=== PATIENT | male | born 1940 | race Caucasian/White ===

== ENCOUNTER → 2023-10-19 08:13 | Outpatient (REF) | payer MEDICARE, SELFPAY ==
[2023-10-19 10:26] LABS: ALT (SGPT) 24 U/L (0-50); AST (SGOT) 35 U/L (17-59); Alkaline Phosphatase 72 U/L (38-126); Blood Urea Nitrogen 26 mg/dl (9-20); Calcium 8.7 mg/dl (8.4-10.2); Carbon Dioxide 27 mmol/L (22-30); Chloride 108 mmol/L (98-107); Glucose 84 mg/dl (70-99); HDL Cholesterol 59 mg/dl; LDL Cholesterol, Calculated 61 mg/dl; Potassium 4.3 mmol/L (3.5-5.1); Sodium 139 mmol/L (135-145); Total Bilirubin 0.8 mg/dl (0.2-1.3); Total Cholesterol 131 mg/dl (50-199); Total Protein 6.6 g/dl (6.3-8.2); Triglyceride 55 mg/dl (10-149); Very Low Density Lipoprotein 11 mg/dl (0-30); eGFR 59.26
== END ==
LOC: REG 08:13
PROVIDERS: ATTENDING PHYSICIAN Internal Medicine; FAMILY PHYSICIAN Family Medicine
DX: I25.10 Atherosclerotic heart disease of native coronary artery without angina pectoris (principal); I10 Essential (primary) hypertension; E78.5 Hyperlipidemia, unspecified
CPT/HCPCS: 36415; 80053; 80061

== ENCOUNTER → 2023-10-23 12:53 | Outpatient (REF) | payer MEDICARE, SELFPAY | LOC: DHCBC HW 12:53 | PROVIDERS: ATTENDING PHYSICIAN Internal Medicine; FAMILY PHYSICIAN Family Medicine | DX: I25.10 Atherosclerotic heart disease of native coronary artery without angina pectoris (principal); I35.1 Nonrheumatic aortic (valve) insufficiency; R42 Dizziness and giddiness | CPT/HCPCS: 93306 ==

== ENCOUNTER → 2023-12-03 14:13 | Outpatient (REF) | payer MEDICARE, SELFPAY | LOC: RAD 14:13 | PROVIDERS: ATTENDING PHYSICIAN Internal Medicine; FAMILY PHYSICIAN Family Medicine | DX: I25.10 Atherosclerotic heart disease of native coronary artery without angina pectoris (principal); R42 Dizziness and giddiness | CPT/HCPCS: 93880 ==

== ENCOUNTER 2024-05-19 20:47 | Inpatient (IN) | payer MEDICARE, SELFPAY ==
[2024-05-19 17:35] VITALS: BP 139/72
--- NOTE | 2024-05-19 17:36 | ED.GENMED ---
ED Provider Triage
<Bhargavi Causey PA-C - Last Filed: 05/21/24 15:00>
-
Patient seen by provider in Triage?: Seen in Triage
Attestation: A medical screening examination has been initiated by a qualified medical provider. Based on the assessment performed at this time, it has been determined that an emergent medical condition may exist and the patient has been informed
that further medical evaluation and possible additional diagnostic testing may be needed.
HPI: 83yoM here with fatigue and generalized weakness x 1 week. HR reportedly low in the 30-40s at home and home BP 90s/50s. Vital signs normal in triage.
GENERAL: Alert , in no apparent distress
EYE: No visual abnormalities.
NECK: Trachea midline
ENT: No visible abnormalities.
LUNGS: No acute respiratory distress
NEUROLOGICAL: Alert and oriented
SKIN: Skin intact. No visible changes.
MUSCULOSKELETAL: Moving extremities normally
PSYCH: Normal and appropriate interaction.
This is a medical evaluation conducted in person to initiate diagnostic evaluation and provide initial therapeutics. Please see further documentation by the treating clinician.
CBC, CMP, and EKG ordered.
History of Present Illness
<Bhargavi Causey PA-C - Last Filed: 05/21/24 15:00>
General
Chief Complaint: Fatigue
Time Seen by Provider: 05/19/24 18:39
<Ángela Ferrera NP - Last Filed: 05/20/24 22:08>
General
Source: patient
Exam Limitations: none
Nursing documentation reviewed up to this point in time: agreed with
History of Present Illness
History of Present Illness:
Patient to ED with complaint of extreme fatigue for the past week. States yesterday he checked his BP and noticed that it was low. He contacted his PCP today to report his fatigue symptoms and was advised to come to ED for eval. Denies
fever/chills, n/v/d. No cp/pressure. Reports mild MURO with stairclimbing, lightheadedness with stair climbing. To ED accompanied by for eval.
Past History
<Bhargavi Causey PA-C - Last Filed: 05/21/24 15:00>
Past History
ED Past Medical History: CAD, Hypercholesterolemia and Other (Kidney stones)
ED Past Surgical History: Cardiac (CABG)
Social History
Tobacco: Non-smoker
Alcohol: None
Drug: None
Personal:
Living: with family
Review of Systems
<Ángela Ferrera OFFICE ADMINISTRATIVE ASSISTANT - Last Filed: 05/20/24 22:08>
Review of Systems
Allergies reviewed?: Yes
All Other Systems: ROS reviewed and negative except as documented in HPI and ROS
Constitutional: Reports fatigue
EENT: Reports no symptoms
Respiratory: Reports no symptoms
Cardiac: Reports no symptoms
ABD/GI: Reports no symptoms
: Reports no symptoms
Musculoskeletal: Reports no symptoms
Skin: Reports no symptoms
Neurological: Reports weakness
Psychiatric: Reports no symptoms
Phy Exam
<Ángela Ferrera OFFICE ADMINISTRATIVE ASSISTANT - Last Filed: 05/20/24 22:08>
General Physical Exam
General Presentation: mild distress
General age: appears stated age
General Skin: warm and dry
General Habitus: normal
General Mental: alert
General Hydration: appears well hydrated
Cardiovascular Exam
Cardiovascular Exam: no edema and irregularly irregular
Pulmonary Exam
Pulmonary Exam: lungs clear and no respiratory distress
Gastrointestinal Exam
Gastrointestinal Exam: normal bowel sounds, non tender and soft
Musculoskeletal Exam
Musculoskeletal Exam: full ROM and neuro vasc intact
Skin Exam
Skin Exam: normal color, warm/dry and no rash
Psychiatric Exam
Psychiatric Exam: normal mood/affect
Scores
<Bhargavi Causey PA-C - Last Filed: 05/21/24 15:00>
[id number] Score for Afib Stroke Risk
Score: 3
Anticoagulation Recommendations: Recommend anticoagulation (as validated in nonvalvular fib)
<Ángela Ferrera NP - Last Filed: 05/20/24 22:08>
[id number] Score for Afib Stroke Risk
Age in Years (65=0, 65-74=1, >/=75=2): > or = 75
Sex (Female=+1): Male
Congestive Heart Failure History (Yes=+1): No
Hypertension History (Yes=+1): No
Stroke/TIA/Thromboembolism History (Yes=+2): No
Vascular Disease History (Yes=+1): Yes
Diabetes Mellitus (Yes=+1): No
Score: 3
Anticoagulation Recommendations: Recommend anticoagulation (as validated in nonvalvular fib)
Course
<Bhargavi Causey PA-C - Last Filed: 05/21/24 15:00>
Orders/Labs/Results
Orders:
Orders
05/19/24 Breakfast
Cholesterol Lowering
At Your Request: Limited Participation
Does patient need a safe tray?: No
Cholesterol Lowering: Sodium, 2 Gram
05/19/24 17:34
ECG [Electrocardiogram (*1)] Urgent
Reason for Study: Fatigue / Weakness
EKG- Treatment ONCE
05/19/24 17:38
EKG- Treatment ONCE
05/19/24 17:52
Complete Blood Count/With Diff Urgent
Comprehensive Metabolic Panel Urgent
TSH Reflex To Free T4 Urgent
Comment: ADDON
05/19/24 19:04
Add On- LAB Urgent
Tests Added?: TSH, reflex to free T4
05/19/24 19:05
Apixaban [Eliquis] 5 mg PO NOW STA
05/19/24 19:13
Troponin I Urgent
05/19/24 20:09
Admit/Transfer Patient As Directed
Co-Sign Provider:
Level of Care: Inpatient admission
Assign to:: Telemetry
Physician / Group: htay
Diagnosis: New onset slow AF , Hypotenssion and fatigue
Reason for Telemetry: Arrhythmia
Date to Stop Telemetry: 05/22/24
Time to Stop Telemetry: 11:00
Reason for Hospitalization: New onset slow AF , Hypotenssion and fatigue
Expected length of stay greater than two midnights?: Yes
ELOS- Estimated Length of Stay in days: 3
I certify the patient meets the requirements for IP care: Yes
05/19/24 20:11
Code Status As Directed
Resuscitation Status: Full Code
05/19/24 22:06
0.9% Sodium Chloride 1000 ml [Nss] 1,000 ml IV 40 mls/hr
Acetaminophen [Tylenol] 650 mg PO Q4HPRN PRN
Bisacodyl [Dulcolax] 10 mg RECTAL [id number] PRN
Docusate W/Senna [Senokot-S] 1 tablet PO BIDPRN PRN
Nitroglycerin Sublingual [Nitrostat (Sublingual)] 0.4 mg SL [id number] PRN
Polyethylene Glycol Powder [Miralax] 17 grams PO DAILYPRN PRN
05/19/24 22:06
Activity As Directed
Activity Level: Encourage Progressive Amb
Intake/ Output As Directed
Frequency: Per unit guidelines
Vital Signs As Directed
Frequency: Per unit guidelines
Weight As Directed
Frequency: Daily
DX Deep Vein Thrombosis Video Routine
05/20/24 08:00
Apixaban [Eliquis] 5 mg PO BID
Aspirin Low Dose EC [Aspir Low (Enteric Coated)] 81 mg PO DAILY
05/20/24 08:01
Basic Metabolic Panel IN AM
Complete Blood Count/With Diff IN AM
05/20/24 22:00
Atorvastatin [Lipitor] 20 mg PO HS
05/22/24 11:00
DC Protocol for Telemetry ONCE
Abnormal Lab Results
05/19/24
17:52
RBC 4.17 L 10^6/uL
(4.70-6.10)
Hct 38.2 L %
(39.0-52.0)
MCH 31.2 H pg
(27.0-31.0)
Absolute Monos (auto) 0.7 H 10^3/uL
(0.1-0.6)
Monocytes % 10.1 H %
(1.7-9.3)
BUN 27 H mg/dl
(9-20)
05/19/24 17:52
05/19/24 17:52
Vital Signs
Initial and Last Documented VS:
Initial Vital Signs
Temp Pulse Resp BP Pulse Ox
98.8 F 68 18 139/72 100
05/19/24 17:35 05/19/24 17:35 05/19/24 17:35 05/19/24 17:35 05/19/24 17:35
Last Documented Vital Signs
Temp Pulse Resp BP Pulse Ox
98.8 F 60 18 131/64 94
05/21/24 11:00 05/21/24 11:00 05/21/24 11:00 05/21/24 11:00 05/21/24 11:00
<Ángela Ferrera NP - Last Filed: 05/20/24 22:08>
Orders/Labs/Results
Orders:
Orders
05/19/24 Breakfast
Cholesterol Lowering
At Your Request: Limited Participation
Does patient need a safe tray?: No
Cholesterol Lowering: Sodium, 2 Gram
05/19/24 17:34
ECG [Electrocardiogram (*1)] Urgent
Reason for Study: Fatigue / Weakness
EKG- Treatment ONCE
05/19/24 17:38
EKG- Treatment ONCE
05/19/24 17:52
Complete Blood Count/With Diff Urgent
Comprehensive Metabolic Panel Urgent
TSH Reflex To Free T4 Urgent
Comment: ADDON
05/19/24 19:04
Add On- LAB Urgent
Tests Added?: TSH, reflex to free T4
05/19/24 19:05
Apixaban [Eliquis] 5 mg PO NOW STA
05/19/24 19:13
Troponin I Urgent
05/19/24 20:09
Admit/Transfer Patient As Directed
Co-Sign Provider:
Level of Care: Inpatient admission
Assign to:: Telemetry
Physician / Group: htay
Diagnosis: New onset slow AF , Hypotenssion and fatigue
Reason for Telemetry: Arrhythmia
Date to Stop Telemetry: 05/22/24
Time to Stop Telemetry: 11:00
Reason for Hospitalization: New onset slow AF , Hypotenssion and fatigue
Expected length of stay greater than two midnights?: Yes
ELOS- Estimated Length of Stay in days: 3
I certify the patient meets the requirements for IP care: Yes
05/19/24 20:11
Code Status As Directed
Resuscitation Status: Full Code
05/19/24 22:06
0.9% Sodium Chloride 1000 ml [Nss] 1,000 ml IV 40 mls/hr
Acetaminophen [Tylenol] 650 mg PO Q4HPRN PRN
Bisacodyl [Dulcolax] 10 mg RECTAL [id number] PRN
Docusate W/Senna [Senokot-S] 1 tablet PO BIDPRN PRN
Nitroglycerin Sublingual [Nitrostat (Sublingual)] 0.4 mg SL [id number] PRN
Polyethylene Glycol Powder [Miralax] 17 grams PO DAILYPRN PRN
05/19/24 22:06
Activity As Directed
Activity Level: Encourage Progressive Amb
Intake/ Output As Directed
Frequency: Per unit guidelines
Vital Signs As Directed
Frequency: Per unit guidelines
Weight As Directed
Frequency: Daily
DX Deep Vein Thrombosis Video Routine
05/20/24 08:00
Apixaban [Eliquis] 5 mg PO BID
Aspirin Low Dose EC [Aspir Low (Enteric Coated)] 81 mg PO DAILY
05/20/24 08:01
Basic Metabolic Panel IN AM
Complete Blood Count/With Diff IN AM
05/20/24 22:00
Atorvastatin [Lipitor] 20 mg PO HS
05/22/24 11:00
DC Protocol for Telemetry ONCE
Abnormal Lab Results
05/19/24
17:52
RBC 4.17 L 10^6/uL
(4.70-6.10)
Hct 38.2 L %
(39.0-52.0)
MCH 31.2 H pg
(27.0-31.0)
Absolute Monos (auto) 0.7 H 10^3/uL
(0.1-0.6)
Monocytes % 10.1 H %
(1.7-9.3)
BUN 27 H mg/dl
(9-20)
05/19/24 17:52
05/19/24 17:52
Vital Signs
Initial and Last Documented VS:
Initial Vital Signs
Temp Pulse Resp BP Pulse Ox
98.8 F 68 18 139/72 100
05/19/24 17:35 05/19/24 17:35 05/19/24 17:35 05/19/24 17:35 05/19/24 17:35
Last Documented Vital Signs
Temp Pulse Resp BP Pulse Ox
98.8 F 60 18 131/64 94
05/21/24 11:00 05/21/24 11:00 05/21/24 11:00 05/21/24 11:00 05/21/24 11:00
<Ángela Ferrera NP - Last Filed: 05/20/24 22:08>
MDM/Problems Addressed
Differential Diagnosis Includes:
Patient to ED with complaint of extreme fatigue x 1 week. EKG on arrival reveals Afib - no prior history. HR fluctuating from high 30's to low 60's. He denies any CP/pressure. No distress while at rest. Case discussed with Dr. Washington. Will
start Eliquis in ED, admit to hospitalist for new onset Afib, hold atenolol. Patient is agreeable to plan.
<Ángela Ferrera NP - Last Filed: 05/20/24 22:08>
*Critical Care Note
Total Time (30-74mins, 75-104mins- exclusive of procedures): Not Applicable
ED Attending Note
<Bhargavi Causey PA-C - Last Filed: 05/21/24 15:00>
-
Portions of this chart may have been created with voice recognition software.� Occasional wrong word or��sound alike� substitutions may have occurred due to the inherent limitations of voice recognition software.
Discharge Plan
Departure
Patient Disposition: Admit
Date of Disposition: 05/19/24
Time of Disposition: 19:21
Presentation/result/management discussed w/ accepting MD/DO: Hospitalist
Condition: Fair
Covid-19: Not Applicable
Discharge Problem:
New onset a-fib
Interventions
Interventions:
*Risk Screen - Suicide Last Done: 05/19/24 17:35
*General Assessment Last Done: 05/19/24 17:35
*Neglect/Abuse Screening Last Done: 05/19/24 17:35
ED- Fall Risk Assessment Last Done: 05/19/24 18:21
*ED COVID-19 Vaccine History Last Done: 05/19/24 17:35
*Nursing Disposition Last Done: 05/19/24 22:16
Discharge Date and Time
Discharge Date/Time: 05/19/24 22:00
[2024-05-19 18:00] LABS: % Basophils 0.6 % (0-2); % Eosinophils 1.3 % (0-6); % Immature Granulocytes 0.1 % (0-0.5); % Lymphocytes 23.4 % (20.5-51.1); % Monocytes 10.1 % (1.7-9.3); % Neutrophils 64.5 % (42.2-75.2); Absolute Eosinophils 0.1 10^3/uL (0-0.7); Absolute Lymphocytes 1.6 10^3/uL (1.2-3.4); Absolute Monocytes 0.7 10^3/uL (0.1-0.6); Absolute Neutrophils 4.3 10^3/uL (1.4-6.5); Hematocrit 38.2 % (39.0-52.0); Mean Corpuscular Hgb 31.2 pg (27.0-31.0); Mean Corpuscular Volume 91.6 fL (80.0-94.0); Mean Platelet Volume 9.9 fL (7.4-10.4); Nucleated Red Blood Cells % 0 % (-); Platelet Count 209 10^3/uL (130-400); Red Blood Cell Count 4.17 10^6/uL (4.70-6.10); Red Cell Dist. Width 13.1 % (11.5-14.5); White Blood Cell Count 6.7 10^3/uL (4.8-10.8)
[2024-05-19 18:16] LABS: ALT (SGPT) 35 U/L (0-50); AST (SGOT) 48 U/L (17-59); Albumin 4.3 g/dl (3.5-5.0); Alkaline Phosphatase 71 U/L (38-126); Blood Urea Nitrogen 27 mg/dl (9-20); Carbon Dioxide 26 mmol/L (22-30); Chloride 105 mmol/L (98-107); Glucose 91 mg/dl (70-99); Potassium 4.8 mmol/L (3.5-5.1); Sodium 143 mmol/L (135-145); Total Bilirubin 0.8 mg/dl (0.2-1.3); Total Protein 6.8 g/dl (6.3-8.2); eGFR 59.26
[2024-05-19 18:17] VITALS: BP 142/82
[2024-05-19 18:20] VITALS: BMI 24.2
[2024-05-19] MEDS: ELIQUIS 5 MG PO (19:13)
[2024-05-19 19:56] LABS: Troponin I 0.019 ng/ml
--- NOTE | 2024-05-19 20:04 | HPS.HSE ---
Family Physician
-
Family Physician: Anil Chandler Jr.
Chief Complaint
-
slow HR and low BP
History of Present Illness
83M pw fatigue for a week and noted CAMPBELL as low as 90s/40s and low HR. as low 30-40
Reports HR 30-40 at home. BP 9/50s
Medical History
Past Medical History
Past Medical History: Reports CAD (CABG ), HTN, Hypercholesterolemia and Other (BPH )
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
Social History
Tobacco: Non-smoker
Alcohol: Daily (1 glass of wine )
Family History
Family History: Not pertinent
Allergies / Home Medications
Allergies reflects when Allergies were last updated in [facility].
Home Medications with original date entered in [facility]
Allergy/Medication List:
Allergies
Allergy/AdvReac Type Severity Reaction Status Date / Time
amoxicillin Allergy Rash Verified 05/19/24 17:39
Home Medications
nitroglycerin 0.4 mg sublingual tablet 0.4 mg sublingual [id number] PRN chest pain 07/23/11
simvastatin 40 mg tablet 40 mg PO HS High cholesterol 07/23/11
aspirin 81 mg tablet,delayed release 81 mg PO DAILY Blood clot prevention/tx 01/12/22
atenolol 25 mg tablet 12.5 mg PO DAILY Blood pressure 01/12/22
cyanocobalamin (vitamin B-12) 1,000 mcg tablet 1,000 mcg PO DAILY Supplement 01/12/22
famotidine 20 mg tablet 20 mg PO DAILYPRN PRN heartburn 01/12/22
Lactobacillus acidophilus (Acidophilus capsule) 1 cap PO DAILY 05/19/24
Review of Systems
-
Constitutional: Reports See HPI and Fatigue
EENT: Reports No Symptoms
Respiratory: Reports No Symptoms
Cardiac: Reports No Symptoms and Other (slow HR low BP )
Abdomen/GI: Reports No Symptoms
: Reports No Symptoms
Musculoskeletal: Reports No Symptoms
Skin: Reports No Symptoms
Neurological: Reports No Symptoms
Endocrine: Reports No Symptoms
Hematologic/Lymphatic: Reports No Symptoms
Psych: Reports No Symptoms
Physical Exam
Vital Signs
Vital Signs
Temp Pulse Resp BP Pulse Ox
98.8 F 68 18 142/82 100
05/19/24 17:35 05/19/24 17:35 05/19/24 17:35 05/19/24 18:17 05/19/24 17:35
Physical Exam
General: Well Developed, Well Nourished and No Apparent Distress
HEENT: NormoCephalic, Moist mucous membranes and Atraumatic
Respiratory: Clear
Cardiac: S1/S2 and Regular Rhythm; No Murmur or Rub
GI: Soft, Non Tender, Non Distended and Normal Bowel Sounds; No Organomegaly
Rectal: Deferred by Provider
Musculoskeletal: No Clubbing, No Cyanosis and No Edema
Skin: No Rash
Neuro: Nonfocal/grossly intact
Laboratory Results
-
05/19/24 17:52
05/19/24 17:52
Laboratory Results
Total Bilirubin 0.8 mg/dl (0.2-1.3) 05/19/24 17:52
AST 48 U/L (17-59) 05/19/24 17:52
ALT 35 U/L (0-50) 05/19/24 17:52
Alkaline Phosphatase 71 U/L (38-126) 05/19/24 17:52
Troponin I 0.019 ng/ml 05/19/24 19:13
Data Reviewed
-
Medical Tests (Nuc Med, Echo, EKG etc): Report Reviewed by me
Lab Data: Labs Reviewed by me
Impression/Plan
-
Data
Unremarkable CBC
Unremarkable CMP
TPNI 0.019
EKG : A Flutter with variable block
10/23/23 ECHO
Normal left ventricular size, wall thickness and systolic function.
LV ejection fraction is 55-60%.
Moderate mitral regurgitation.
Mild aortic stenosis.
Mild aortic regurgitation.
ASSESSMENT & PLAN
New onset A Flutter with viable block presumed symptomatic with lightheadedness with 2-3 flights of stairs
Fatigue for 1week
P card: Dr Link
- Held Atenolol
- ER imitated Eliquis 5 mg BID
- LVEF 55- 60 % in 10/23/23
- TLM monitor
- Fall precaution
- CBC Card consult
CAD status post CABG HX
- c/w SODA FLAKER ASA
- Held atenolol due to slow HR
- SL NTG PRN
Hyperlipidemia
- on SODA FLAKER Simvastatin
Right hydroureteronephrosis secondary to obstructed renal stone
Daily alcohol usage just a glass of wine
DVT Px: on Eliquis
Code: full
IP TLM
[2024-05-19 20:19] LABS: TSH Reflex To Free T4 1.72 uIU/ml (0.47-4.68)
[2024-05-19 22:18] VITALS: BMI 22.4
[2024-05-19 22:21] VITALS: BP 147/71
[2024-05-19] MEDS: NSS 1000 IV (23:20)
[2024-05-20] VITALS (7 sets, daily range): BP systolic 94–144; BP diastolic 56–66; BMI 22.7
--- NOTE | 2024-05-20 00:53 | PTCARENOTE ---
Patient received from ED via stretcher and was pulled to bed by staff. He was oriented to room and surroundings. HR irreg A-fib on tele HR bradycardic. Breath sounds are clear but diminished bibasilar. +BS x 4 Voiding in urinal. Patient
denies pain. IVF as ordered.Call peacock in reach.
--- NOTE | 2024-05-20 04:03 | DOWNTIME ---
There was a [employer] Client Director Physical Downtime on 05/20/2024 from 0100 to 05/20/2024 at 0355. Downtime documentation of patient's care, including medication administrations, has been reconciled in the electronic record per guidelines. Refer to the
patient's paper chart under the miscellaneous tab to see printed paper medication records and downtime forms.
--- NOTE | 2024-05-20 04:24 | PTCARENOTE ---
Tele alarming for HR 30's-40's. A-fib/Aflutter Reviewed by CATHY, covering floor. Patient sleeping comfortably
[2024-05-20 08:44] LABS: % Basophils 0.7 % (0-2); % Eosinophils 2.6 % (0-6); % Immature Granulocytes 0.2 % (0-0.5); % Lymphocytes 23.5 % (20.5-51.1); % Monocytes 11.1 % (1.7-9.3); % Neutrophils 61.9 % (42.2-75.2); Absolute Eosinophils 0.2 10^3/uL (0-0.7); Absolute Lymphocytes 1.4 10^3/uL (1.2-3.4); Absolute Monocytes 0.7 10^3/uL (0.1-0.6); Absolute Neutrophils 3.8 10^3/uL (1.4-6.5); Hemoglobin 12.6 g/dL (13.0-18.0); Mean Corp Hgb Conc. 34.1 g/dL (33.0-37.0); Mean Corpuscular Hgb 32.6 pg (27.0-31.0); Mean Corpuscular Volume 95.6 fL (80.0-94.0); Mean Platelet Volume 10.5 fL (7.4-10.4); Nucleated Red Blood Cells % 0 % (-); Platelet Count 196 10^3/uL (130-400); Red Blood Cell Count 3.87 10^6/uL (4.70-6.10); Red Cell Dist. Width 13.1 % (11.5-14.5); White Blood Cell Count 6.1 10^3/uL (4.8-10.8)
[2024-05-20] MEDS: ASPIR LOW (ENTERIC COATED) 81 MG PO (09:02)
[2024-05-20] MEDS: ELIQUIS 5 MG PO ×2 (09:02→20:34)
[2024-05-20 09:50] LABS: Blood Urea Nitrogen 22 mg/dl (9-20); Calcium 8.6 mg/dl (8.4-10.2); Carbon Dioxide 26 mmol/L (22-30); Chloride 106 mmol/L (98-107); Estimated Creatinine Clearance 47 ml/min; Glucose 75 mg/dl (70-99); Potassium 4.3 mmol/L (3.5-5.1); Sodium 143 mmol/L (135-145); eGFR > 60.00
--- NOTE | 2024-05-20 09:52 | W.PN.HOSP.TC ---
Today's Communication/Plan
-
Cardiology consult
Assessment / Plan
Assessment / Plan
Gen-AAOx3, NAD
HEENT-NC, AT, anicteric, clear oral mm
Neck-supple
CV-reg, no M, +S1/S2
Lungs-clear B/L
Abd-soft, NT, ND
Ext-no edema
Musculoskeletal-no cyanosis, clubbing
Skin-warm and dry
Neuro-grossly non-focal
Psych-calm, cooperative
Symptomatic bradycardia -atenolol now on hold. Heart rate still in the 40s to 50s. TSH normal. Cardiology consulted. Suspicion for sick sinus disease. Also noted to be hypotensive prior to arrival.
New onset atrial flutter -with bradycardia. Eliquis initiated.
CAD/CABG
Hyperlipidemia -simvastatin.
BPH
Nephrolithiasis
Full code
Anticipated Discharge: 24 - 48 hours
Subjective/Interval History
-
Date of Service: May 20, 2024
Patient seen and examined. No complaints.
Objective Data
-
Labs:
Laboratory Results
05/20/24
08:01
WBC 6.1
Hgb 12.6 L
Hct 37.0 L
Plt Count 196
Sodium 143
Potassium 4.3
Chloride 106
Carbon Dioxide 26
BUN 22 H
Creatinine 1.0
Glucose 75
Calcium 8.6
Vital Signs:
Vital Signs
Temp Pulse Resp BP Pulse Ox
97.7 F 65 18 121/57 99
05/20/24 08:04 05/20/24 08:04 05/20/24 08:04 05/20/24 08:04 05/20/24 08:04
I&O
05/19/24 05/20/24 05/21/24
06:59 06:59 06:59
Intake Total 780 / 780
Output Total 525 / 525 300 / 300
Balance 255 / 255 -300 / -300
Review of Systems
-
History Source: Patient
All other systems: Reviewed and negative
--- NOTE | 2024-05-20 11:12 | CON.CAR ---
Addendum entered and electronically signed by Naresh Myers MD 05/20/24 13:22:
I saw and examined the patient.
The CONTRACT PROJECT MANAGER's note was reviewed and I agree with the note.
Comment: Hard to be sure that all of his symptoms are from his slow atrial flutter but it certainly seems likely. We reviewed the risks/benefits/alternatives of Eliquis. His sinus rates are typically in the mid 50s.
Echo today is stable from earlier this year. No angina. No overt heart failure.
Suggest:
Eliquis, stop ASA
BHAVIN/cardioversion tomorrow
Stay of BB and other meds that can cause bradycardia
Watch for sinus node dysfunction
If flutter recurs => ablation is favored approach, watch for AFib
He understands that he may require a pacemaker but will see if sinus rates are his usual 50s
Original Note:
Consultation
Consultation Request
Date/Time Consultation Requested: 05/20/2024 09:40
Date/Time Consultation Performed: 05/20/2024 11:00
Requesting Provider: Dr. Benitez
Performing Provider: CATHY Vick for Dr. Myers
Reason for Consultation: Bradycardia
Medical History
-
Chief Complaint: Fatigue
History of Present Illness:
Noe Robles is an 83 year old male (known to Dr. 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 He believes
it started about 5 days prior to arrival. He had no other symptoms to reflect viral syndrome. He then checked his blood pressure and found it to be low and his heart rate was low. He was found to be in atrial flutter, onset unknown, with rates
30-50 bpm. He had taken atenolol the morning of arrival. He denies symptoms of dizziness, lightheadedness, presyncope, and syncope.
Past Medical History
Past Medical History: Arrhythmias (PVC), CAD (CABG), HTN, Hypercholesterolemia, Valvular Disease (Moderate mitral regurgitation) and Other (CLINTON)
Past Surgical History: Appendectomy, Cardiac (CABG) and Tonsilectomy
Social History
Tobacco: Non-Smoker
Alcohol: Occasional
Personal:
Living: With Family
Employment: Retired
Family History
Family History: Reviewed & Not Pertinent
Allergies / Home Medications
Allergy/AdvReac Type Severity Reaction Status Date / Time
amoxicillin Allergy Rash Verified 05/19/24 17:39
�Medication �Instructions �Recorded �Confirmed �Type
nitroglycerin 0.4 mg sublingual 0.4 mg sublingual [id number] PRN 07/23/11 05/19/24 History
tablet chest pain
simvastatin 40 mg tablet 40 mg PO HS High cholesterol 07/23/11 05/19/24 History
aspirin 81 mg tablet,delayed 81 mg PO DAILY Blood clot 01/12/22 05/19/24 History
release prevention/tx
atenolol 25 mg tablet 12.5 mg PO DAILY Blood pressure 01/12/22 05/19/24 History
cyanocobalamin (vitamin B-12) 1,000 mcg PO DAILY Supplement 01/12/22 05/19/24 History
1,000 mcg tablet
famotidine 20 mg tablet 20 mg PO DAILYPRN PRN heartburn 01/12/22 05/19/24 History
Lactobacillus acidophilus 1 cap PO DAILY 05/19/24 05/19/24 History
(Acidophilus capsule)
Review of Systems
-
History Source: Patient
All other systems: Negative unless noted
Constitutional: Fatigue
EENT: No Symptoms
Respiratory: No Symptoms
Cardiac: No Symptoms
Abdomen/GI: No Symptoms
: No Symptoms
Musculoskeletal: No Symptoms
Skin: No Symptoms
Neurological: No Symptoms
Endocrine: No Symptoms
Hematologic/Lymphatic: No Symptoms
Physical Exam
Vital Signs
Temp Pulse Resp BP Pulse Ox
97.7 F 65 18 121/57 99
05/20/24 08:04 05/20/24 08:04 05/20/24 08:04 05/20/24 08:04 05/20/24 08:04
Lab Results
05/20/24 08:01
05/20/24 08:01
Troponin I 0.019 ng/ml 05/19/24 19:13
Physical Exam
General: Well Developed, Well Nourished, No Apparent Distress and Comfortable
HEENT: Normocephalic, Anicteric and Moist Mucous Membranes
Respiratory: Clear and Non Labored Respirations
Cardiac: S1/S2 and Irregular Rhythm; Negative Peripheral Edema
Breast: Deferred by me
GI: Soft, Non Tender, Non Distended and Normal Bowel Sounds
Genito-urinary: No Costovertebral Tender
Musculoskeletal: No Clubbing, No Cyanosis and No Edema
Skin: Warm and Dry
Neuro: AO x 3
Hematologic/Lymphatic: No Lymphadenopathy
Psych: Calm
Impression / Plan
-
BACKGROUND: 83M with with CAD (CABG, 2011), MR, HTN, HLD, and CLINTON who presented with weakness. He was found to be in atrial flutter with slow ventricular response.
Social And Political Studies Professor: Dr. Link
PLAN:
Atrial flutter with slow ventricular response, onset unknown
-Rates remain slow, last dose of atenolol 05/19/2024, hold AV miesha agents
-Oral Anticoagulation: Apixaban 5 mg twice daily was started this admission
-[id number]: score at least 4 (HTN, age 75 or more, Vascular disease)
-N.p.o. after midnight, BHAVIN/DCCV in a.m.
Coronary artery disease
-Stable without chest pain
-CABG 2011, stop ASA in favor of single agent (apixaban)
Hypertension, BP stable with atenolol on hold
Mild aortic stenosis, update echocardiogram
Moderate mitral regurgitation
Dyslipidemia, on simvastatin, LDL at goal
CLINTON, on BiPAP
DATA:
Transthoracic echocardiogram, 10/23/2023:
Normal left ventricular size, wall thickness and systolic function.
LV ejection fraction is 55-60%.
Moderate mitral regurgitation.
Mild aortic stenosis.
Mild aortic regurgitation.
Compared to the previous echo finds are similar but mild aortic stenosis is now
reported.
Data Reviewed
-
EKG: Report Reviewed by me (Atrial flutter with variable AV block, rate 60)
Medical Tests (Nuc Med, Echo etc): Report Reviewed by me (Prior echocardiogram as above)
Labs: Labs Reviewed by me
Old Records: Reviewed
[2024-05-20] MEDS: LIPITOR 20 MG PO (20:33)
--- NOTE | 2024-05-21 00:48 | PTCARENOTE ---
Patient had 10beats of v-tach, asymptomatic, sleeping. CATHY Jaramillo made aware.
[2024-05-21 03:10] VITALS: BP 129/63
[2024-05-21 06:00] VITALS: BMI 22.7
[2024-05-21 06:02] LABS: Hematocrit 36.8 % (39.0-52.0); Hemoglobin 12.5 g/dL (13.0-18.0); Mean Corpuscular Hgb 31.3 pg (27.0-31.0); Mean Corpuscular Volume 92.2 fL (80.0-94.0); Mean Platelet Volume 10.6 fL (7.4-10.4); Platelet Count 202 10^3/uL (130-400); Red Blood Cell Count 3.99 10^6/uL (4.70-6.10); White Blood Cell Count 7.3 10^3/uL (4.8-10.8)
[2024-05-21 06:31] LABS: Blood Urea Nitrogen 28 mg/dl (9-20); Calcium 8.8 mg/dl (8.4-10.2); Carbon Dioxide 27 mmol/L (22-30); Chloride 105 mmol/L (98-107); Estimated Creatinine Clearance 39 ml/min; Glucose 80 mg/dl (70-99); Magnesium 1.7 mg/dl (1.6-2.3); Potassium 4.6 mmol/L (3.5-5.1); Sodium 142 mmol/L (135-145); eGFR 59.26
[2024-05-21 07:39] VITALS: BP 142/66
--- NOTE | 2024-05-21 08:57 | ITS.CL.CARDI ---
Ethylbenzene Oxidizer - Cardioversion
Cardioversion
Procedure Report:
Procedure: BHAVIN-guided electrical cardioversion
Pre-operative diagnosis: Persistent atrial flutter
Post-operative diagnosis: Persistent atrial flutter status post DC cardioversion to sinus rhythm
Anesthesia: MAC
Attending Physician: Estrada Mary MD
Procedure Description: The patient was brought to the electrophysiology laboratory in the fasting state. Informed consent was obtained from the patient prior to the start of the procedure. Adherence to anticoagulation was confirmed. Electrodes were
placed on the patient and connected to an external defibrillator. Monitoring of blood pressure, ECG tracings, and pulse oximetry was initiated. The pads were applied to the patient in the anterior and posterior positions. The patient was sedated by
the anesthesiologist. A BHAVIN (reported separately) was performed prior to the cardioversion. No left atrial or left atrial appendage thrombus was seen. After the BHAVIN probe was removed, a 50 joule biphasic synchronized shock was delivered to the
patient under MAC anesthesia. Sinus rhythm was successfully restored. The patient recovered uneventfully from MAC anesthesia. There were no immediate post-procedure complications. The patient left the lab in good condition. The attending physician
was present throughout the entire procedure.
Impression: Successful BHAVIN-guided direct current cardioversion with mosque of sinus rhythm after one 50 joule biphasic synchronized shock.
--- NOTE | 2024-05-21 09:23 | W.PN.CD ---
Today's Communication / Plan
-
atenolol stopped
apixaban 5 mg twice daily
back in sinus after BHAVIN/DCCV this AM
monitor tele
Impression / Plan
-
BACKGROUND: 83M with with CAD (CABG, 2011), MR, HTN, HLD, and CLINTON who presented with weakness. He was found to be in atrial flutter with slow ventricular response.
Nursing Resident: Dr. Link
PLAN:
Atrial flutter (typical) with slow ventricular response, onset unknown
-hold AV miesha agents (atenolol stopped)
-Oral Anticoagulation: Apixaban 5 mg twice daily was started this admission
-[id number]: score at least 4 (HTN, age 75 or more, Vascular disease)
-back in sinus after BHAVIN/DCCV this AM
-wide complex rhythm during procedure (prior to DCCV), suspect atrial flutter with aberrancy
Coronary artery disease
-Stable without chest pain
-CABG 2012: stopped ASA in favor of single agent (apixaban)
Hypertension, BP stable with atenolol on hold--monitor
Mild aortic stenosis and regurgitation
Moderate mitral regurgitation
Dyslipidemia, on simvastatin, LDL at goal
CLINTON, on BiPAP
DATA:
Transthoracic echocardiogram, 05/20/2024:
Normal left ventricular size, wall thickness and systolic function.
LV ejection fraction is 50-55%.
Moderate mitral regurgitation.
Mild aortic stenosis.
Mild aortic regurgitation.
Physical Exam
Vital Signs/Labs
Vital Signs
Temp Pulse Resp BP Pulse Ox
98.6 F 69 18 142/66 99
05/21/24 07:39 05/21/24 07:39 05/21/24 07:39 05/21/24 07:39 05/21/24 07:39
05/20/24 05/21/24 05/22/24
06:59 06:59 06:59
Actual Weight 61.887 kg 61.83 kg
05/21/24 04:52
05/21/24 04:52
Magnesium 1.7 mg/dl (1.6-2.3) 05/21/24 04:52
LAB Results
05/19/24
19:13
Troponin I 0.019
Physical Exam
Constitutional: No acute distress
EENT: Moist mucous membranes
Cardiovascular: Rhythm & rate is regular, Pedal edema is absent, JVD pressure is normal and Systolic murmur present
Respiratory: Respiratory effort normal and Lungs clear to auscul.
Neuro/Psych: AO x 3
Data Reviewed
-
Date of Service: May 21, 2024
EKG: Other (Atrial flutter, aberrant conduction; then sinus rhythm)
Echo: Report Reviewed by me
Labs: Labs Reviewed by me
--- NOTE | 2024-05-21 10:02 | W.PN.HOSP.TC ---
Today's Communication/Plan
-
Resume diet
Monitor overnight
Assessment / Plan
Assessment / Plan
Gen-AAOx3, NAD
HEENT-NC, AT, anicteric, clear oral mm
Neck-supple
CV-reg, no M, +S1/S2
Lungs-clear B/L
Abd-soft, NT, ND
Ext-no edema
Musculoskeletal-no cyanosis, clubbing
Skin-warm and dry
Neuro-grossly non-focal
Psych-calm, cooperative
Symptomatic bradycardia -atenolol now on hold. Heart rate improved. TSH normal. Cardiology consulted. Suspicion for sick sinus disease. Also noted to be hypotensive prior to arrival.
New onset atrial flutter -with bradycardia. Eliquis initiated. Successful BHAVIN guided cardioversion 05/21. Monitor overnight for any further dysrhythmias. Discussed with Dr. Link.
CAD/CABG -aspirin discontinued given plans for long-term anticoagulation.
Hyperlipidemia -simvastatin.
BPH
Nephrolithiasis
Full code
Dispo -possible discharge tomorrow if stable. Discussed with at the bedside.
Anticipated Discharge: Within 24 hours
Subjective/Interval History
-
Date of Service: May 21, 2024
Patient seen and examined. No complaints.
Objective Data
-
Labs:
Laboratory Results
05/21/24
04:52
WBC 7.3
Hgb 12.5 L
Hct 36.8 L
Plt Count 202
Sodium 142
Potassium 4.6
Chloride 105
Carbon Dioxide 27
BUN 28 H
Creatinine 1.2
Glucose 80
Calcium 8.8
Vital Signs:
Vital Signs
Temp Pulse Resp BP Pulse Ox
98.6 F 69 18 142/66 99
05/21/24 07:39 05/21/24 07:39 05/21/24 07:39 05/21/24 07:39 05/21/24 07:39
I&O
05/20/24 05/21/24 05/22/24
06:59 06:59 06:59
Intake Total 780 / 780 1680 / 1680
Output Total 525 / 525 300 / 300
Balance 255 / 255 1380 / 1380
Review of Systems
-
History Source: Patient
All other systems: Reviewed and negative
[2024-05-21] MEDS: ELIQUIS 5 MG PO ×2 (10:25→21:45)
[2024-05-21] MEDS: MIRALAX 17 GRAMS PO (10:25)
--- NOTE | 2024-05-21 10:49 | PTCARENOTE ---
Patient arrived to floor post BHAVIN/CV in NSR. Strip charted.
[2024-05-21 11:00] VITALS: BP 131/64
[2024-05-21 15:06] VITALS: BP 121/62
--- NOTE | 2024-05-21 16:53 | CM ---
met with patient at bedside.patient lives with his spouse in [place] at [facility],he amb I and is I with his adl.his pcp is dr may and he uses [facility] in [place].he has had a vn aftr bypass surgery and he has no ip rehab episodes.
PMH: henry,cad,hld,bph,htn,hld
patient is adm with new onset afib.he had a polo/cv and is in nsr.atenolol stopped,on apixaban.Plan:may need AC on dc.Plan home with no needs.
[2024-05-21 19:55] VITALS: BP 120/57
[2024-05-21] MEDS: LIPITOR 20 MG PO (21:45)
[2024-05-21 23:32] VITALS: BP 121/65
[2024-05-22 03:31] VITALS: BP 141/66
[2024-05-22 06:00] VITALS: BMI 22.7
[2024-05-22 07:17] VITALS: BP 118/54
--- NOTE | 2024-05-22 08:30 | W.PN.CD ---
Today's Communication / Plan
-
ASA changed to eliquis 5mg bid
atenolol changed to amlodipine 2.5mg daily
stable from cardiac perspective
we will call patient for 2 week follow up
Impression / Plan
-
BACKGROUND: 83M with with CAD (CABG, 2011), MR, HTN, HLD, and CLINTON who presented with weakness. He was found to be in atrial flutter with slow ventricular response.
Social Media Analyst: Dr. Link
PLAN:
Atrial flutter (typical) with slow ventricular response, onset unknown
-stopped AV miesha agents (atenolol stopped)
-Oral Anticoagulation: Apixaban 5 mg twice daily was started this admission
-[id number]: score at least 4 (HTN, age 75 or more, Vascular disease)
-back in sinus after BHAVIN/DCCV 05/21
-wide complex rhythm during procedure (prior to DCCV), suspect atrial flutter with aberrancy
Coronary artery disease
-Stable without chest pain
-CABG 2011: stopped ASA in favor of single agent (apixaban)
Hypertension
-atenolol changed to amlodipine 2.5mg daily
Mild aortic stenosis and regurgitation
Moderate mitral regurgitation
Dyslipidemia, on simvastatin, LDL at goal
CLINTON, on BiPAP
DATA:
Transthoracic echocardiogram, 05/20/2024:
Normal left ventricular size, wall thickness and systolic function.
LV ejection fraction is 50-55%.
Moderate mitral regurgitation.
Mild aortic stenosis.
Mild aortic regurgitation.
Physical Exam
Vital Signs/Labs
Vital Signs
Temp Pulse Resp BP Pulse Ox
97.5 F 65 20 118/54 97
05/22/24 07:17 05/22/24 07:17 05/22/24 07:17 05/22/24 07:17 05/22/24 07:17
05/21/24 05/22/24 05/23/24
06:59 06:59 06:59
Actual Weight 61.83 kg 61.774 kg
05/21/24 04:52
05/21/24 04:52
Magnesium 1.7 mg/dl (1.6-2.3) 05/21/24 04:52
LAB Results
05/19/24
19:13
Troponin I 0.019
Physical Exam
Constitutional: No acute distress and Comfortable
EENT: Moist mucous membranes
Cardiovascular: Rhythm & rate is regular, Pedal edema is absent, JVD pressure is normal and Systolic murmur present
Respiratory: Respiratory effort normal and Lungs clear to auscul.
Neuro/Psych: AO x 3
Data Reviewed
-
Date of Service: May 22, 2024
EKG: Other (Tele: NSR 70s, blocked PAC)
--- NOTE | 2024-05-22 09:20 | W.PN.HOSP.TC ---
Today's Communication/Plan
-
Discharge
Assessment / Plan
Assessment / Plan
Gen-AAOx3, NAD
HEENT-NC, AT, anicteric, clear oral mm
Neck-supple
CV-reg, no M, +S1/S2
Lungs-clear B/L
Abd-soft, NT, ND
Ext-no edema
Musculoskeletal-no cyanosis, clubbing
Skin-warm and dry
Neuro-grossly non-focal
Psych-calm, cooperative
Symptomatic bradycardia -atenolol stopped. Heart rate improved. TSH normal. Cardiology consulted. Suspicion for sick sinus disease. Also noted to be hypotensive prior to arrival.
New onset atrial flutter -with bradycardia. Eliquis initiated. Successful BHAVIN guided cardioversion 05/21. No events overnight. No more symptoms.
CAD/CABG -aspirin discontinued given plans for long-term anticoagulation.
Essential hypertension -amlodipine started, continue on discharge.
Hyperlipidemia -simvastatin.
BPH
Nephrolithiasis
Full code
Dispo -medically stable for discharge home today. Follow-up with cardiology and PCP.
32 minutes spent in discharge process.
Anticipated Discharge: Today
Subjective/Interval History
-
Date of Service: May 22, 2024
Patient seen and examined. No complaints.
Objective Data
-
Vital Signs:
Vital Signs
Temp Pulse Resp BP Pulse Ox
97.5 F 65 20 118/54 97
05/22/24 07:17 05/22/24 07:17 05/22/24 07:17 05/22/24 07:17 05/22/24 07:17
I&O
05/21/24 05/22/24 05/23/24
06:59 06:59 06:59
Intake Total 1680 / 1680 840 / 840
Output Total 300 / 300
Balance 1380 / 1380 840 / 840
Review of Systems
-
History Source: Patient
All other systems: Reviewed and negative
--- NOTE | 2024-05-22 09:25 | W.DS.TRANS ---
DC Summary - Electronic Device Repairer
-
Discharge Instructions:
Discharge Diagnosis/Procedures Atrial flutter, bradycardia
Diet Low Cholesterol,Low Fat
Activity As tolerated
Driving Restrictions As prior to admission
Bathing Restrictions None
Instructions:
Stand-Alone Forms:
Changes to Home Medications: No
Discharge Medications:
DC Medications w/original date entered in [facility]
nitroglycerin 0.4 mg sublingual tablet 0.4 mg sublingual [id number] PRN chest pain 07/23/11
simvastatin 40 mg tablet 40 mg PO HS High cholesterol 07/23/11
cyanocobalamin (vitamin B-12) 1,000 mcg tablet 1,000 mcg PO DAILY Supplement 01/12/22
famotidine 20 mg tablet 20 mg PO DAILYPRN PRN heartburn 01/12/22
Lactobacillus acidophilus (Acidophilus capsule) 1 cap PO DAILY 05/19/24
amlodipine 2.5 mg tablet 2.5 mg PO DAILY #30 tabs 05/22/24
apixaban 5 mg tablet (Eliquis) 5 mg PO BID #60 tabs 05/22/24
Home Medication Changes
Pending Results: No
[2024-05-22] MEDS: NORVASC 2.5 MG PO (10:37)
[2024-05-22] MEDS: ELIQUIS 5 MG PO (10:38)
[2024-05-22] MEDS: MIRALAX PO (10:38)
== END 2024-05-22 13:10 | disposition home or self-care (01) | DRG 310 ==
LOC: 4 EAST ACU 20:47
PROVIDERS: Internal Medicine Cardiovascular Disease; Nurse Practitioner; Nurse Practitioner Gerontology; Physician Assistant; ADMITTING PHYSICIAN Internal Medicine; ATTENDING PHYSICIAN Hospitalist; CONSULT PHYSICIAN Internal Medicine Cardiovascular Disease; EMERGENCY PHYSICIAN Emergency Medicine; FAMILY PHYSICIAN Family Medicine
PROC: 5A2204Z Restoration of Cardiac Rhythm, Single (ICD-10-PCS; 2024-05-21)
PROC: 5A09357 Assistance with Respiratory Ventilation, Less than 24 Consecutive Hours, Continuous Positive Airway Pressure (ICD-10-PCS; 2024-05-21)
PROC: B24BZZ4 Ultrasonography of Heart with Aorta, Transesophageal (ICD-10-PCS; 2024-05-21)
DX: I48.92 Unspecified atrial flutter (principal); I48.91 Unspecified atrial fibrillation; R00.1 Bradycardia, unspecified; R53.83 Other fatigue; R53.1 Weakness; E78.00 Pure hypercholesterolemia, unspecified; I25.10 Atherosclerotic heart disease of native coronary artery without angina pectoris; I10 Essential (primary) hypertension; N40.0 Benign prostatic hyperplasia without lower urinary tract symptoms; I08.0 Rheumatic disorders of both mitral and aortic valves; G47.33 Obstructive sleep apnea (adult) (pediatric); I95.9 Hypotension, unspecified; Z88.0 Allergy status to penicillin; Z87.442 Personal history of urinary calculi; Z79.82 Long term (current) use of aspirin; Z95.1 Presence of aortocoronary bypass graft
CPT/HCPCS: 80048; 80053; 83735; 84443; 84484; 85025; 85027; 92960; 93005; 93306; 93312; 93320; 93325; 99285

== ENCOUNTER → 2024-06-10 07:37 | Outpatient (REF) | payer MEDICARE, SELFPAY ==
[2024-06-10 08:45] LABS: % Basophils 0.8 % (0-2); % Eosinophils 6.4 % (0-6); % Immature Granulocytes 0.2 % (0-0.5); % Lymphocytes 31.8 % (20.5-51.1); % Monocytes 13.2 % (1.7-9.3); % Neutrophils 47.6 % (42.2-75.2); Absolute Eosinophils 0.3 10^3/uL (0-0.7); Absolute Lymphocytes 1.5 10^3/uL (1.2-3.4); Absolute Monocytes 0.6 10^3/uL (0.1-0.6); Absolute Neutrophils 2.2 10^3/uL (1.4-6.5); Hematocrit 36.8 % (39.0-52.0); Hemoglobin 12.4 g/dL (13.0-18.0); Mean Corp Hgb Conc. 33.7 g/dL (33.0-37.0); Mean Corpuscular Hgb 31.6 pg (27.0-31.0); Mean Corpuscular Volume 93.9 fL (80.0-94.0); Mean Platelet Volume 10.2 fL (7.4-10.4); Nucleated Red Blood Cells % 0 % (-); Platelet Count 212 10^3/uL (130-400); Red Blood Cell Count 3.92 10^6/uL (4.70-6.10); Red Cell Dist. Width 13.3 % (11.5-14.5); White Blood Cell Count 4.7 10^3/uL (4.8-10.8)
[2024-06-10 10:02] LABS: ALT (SGPT) 23 U/L (0-50); AST (SGOT) 31 U/L (17-59); Albumin 4.2 g/dl (3.5-5.0); Alkaline Phosphatase 63 U/L (38-126); Blood Urea Nitrogen 23 mg/dl (9-20); Calcium 9.3 mg/dl (8.4-10.2); Carbon Dioxide 25 mmol/L (22-30); Chloride 108 mmol/L (98-107); Glucose 87 mg/dl (70-99); HDL Cholesterol 61 mg/dl; LDL Cholesterol, Calculated 66 mg/dl; Potassium 4.4 mmol/L (3.5-5.1); Sodium 144 mmol/L (135-145); Total Bilirubin 0.8 mg/dl (0.2-1.3); Total Cholesterol 136 mg/dl (50-199); Total Protein 6.7 g/dl (6.3-8.2); Triglyceride 47 mg/dl (10-149); Very Low Density Lipoprotein 9 mg/dl (0-30); eGFR > 60.00
[2024-06-10 12:04] LABS: TSH Reflex To Free T4 1.66 uIU/ml (0.47-4.68)
[2024-06-10 12:23] LABS: Vitamin B12 876 pg/ml (239-931)
== END ==
LOC: REG 07:37
PROVIDERS: ATTENDING PHYSICIAN Family Medicine; REFERRING PHYSICIAN Internal Medicine
DX: E78.5 Hyperlipidemia, unspecified (principal); E53.8 Deficiency of other specified B group vitamins; Z13.1 Encounter for screening for diabetes mellitus; R53.83 Other fatigue
CPT/HCPCS: 36415; 80053; 80061; 82607; 84443; 85025

== ENCOUNTER → 2024-09-07 10:30 | Outpatient (REF) | payer MEDICARE, SELFPAY | LOC: HWRAD 10:30 | PROVIDERS: ATTENDING PHYSICIAN Internal Medicine | DX: R09.89 Other specified symptoms and signs involving the circulatory and respiratory systems (principal) | CPT/HCPCS: 71046 ==

== ENCOUNTER → 2024-09-08 10:04 | Outpatient (REF) | payer MEDICARE, SELFPAY | LOC: RCS 10:04 | PROVIDERS: ATTENDING PHYSICIAN Internal Medicine; FAMILY PHYSICIAN Family Medicine | DX: I48.3 Typical atrial flutter (principal) | CPT/HCPCS: 93225; 93226 ==

== ENCOUNTER → 2024-09-23 08:59 | Outpatient (REF) | payer MEDICARE, SELFPAY | LOC: HWRCS 08:59 | PROVIDERS: ATTENDING PHYSICIAN Internal Medicine; FAMILY PHYSICIAN Family Medicine | DX: I25.10 Atherosclerotic heart disease of native coronary artery without angina pectoris (principal); Z95.1 Presence of aortocoronary bypass graft; I10 Essential (primary) hypertension; I48.3 Typical atrial flutter | CPT/HCPCS: 93306 ==

== ENCOUNTER → 2024-10-03 10:58 | Outpatient (REF) | payer MEDICARE, SELFPAY ==
[2024-10-03 12:17] LABS: Blood Urea Nitrogen 37 mg/dl (9-20); Carbon Dioxide 29 mmol/L (22-30); Chloride 102 mmol/L (98-107); Glucose 122 mg/dl (70-99); Potassium 4.3 mmol/L (3.5-5.1); Sodium 139 mmol/L (135-145); eGFR 45.06
== END ==
LOC: REG 10:58
PROVIDERS: ATTENDING PHYSICIAN Internal Medicine; FAMILY PHYSICIAN Family Medicine
DX: I25.10 Atherosclerotic heart disease of native coronary artery without angina pectoris (principal); I50.32 Chronic diastolic (congestive) heart failure
CPT/HCPCS: 36415; 80048

== ENCOUNTER → 2024-10-07 11:25 | Outpatient (REF) | payer MEDICARE, SELFPAY | LOC: HWRCS 11:25 | PROVIDERS: ATTENDING PHYSICIAN Internal Medicine; FAMILY PHYSICIAN Family Medicine | DX: I25.10 Atherosclerotic heart disease of native coronary artery without angina pectoris (principal); I48.3 Typical atrial flutter; I48.19 Other persistent atrial fibrillation; R06.09 Other forms of dyspnea | CPT/HCPCS: 78452; 93017; A9500 ==

== ENCOUNTER → 2024-10-13 09:51 | Outpatient (REF) | payer MEDICARE, SELFPAY ==
[2024-10-13 13:44] LABS: Blood Urea Nitrogen 37 mg/dl (9-20); Carbon Dioxide 25 mmol/L (22-30); Chloride 106 mmol/L (98-107); Glucose 105 mg/dl (70-99); Potassium 4.2 mmol/L (3.5-5.1); Sodium 140 mmol/L (135-145)
== END ==
LOC: HWLAB 09:51
PROVIDERS: ATTENDING PHYSICIAN Internal Medicine; FAMILY PHYSICIAN Family Medicine
DX: I25.10 Atherosclerotic heart disease of native coronary artery without angina pectoris (principal)
CPT/HCPCS: 36415; 80048

== ENCOUNTER → 2024-10-27 10:01 | Outpatient (REF) | payer MEDICARE, SELFPAY ==
[2024-10-27 12:53] LABS: Blood Urea Nitrogen 32 mg/dl (9-20); Carbon Dioxide 26 mmol/L (22-30); Chloride 109 mmol/L (98-107); Glucose 97 mg/dl (70-99); Potassium 4.9 mmol/L (3.5-5.1); Sodium 144 mmol/L (135-145); eGFR 45.06
== END ==
LOC: HWLAB 10:01
PROVIDERS: ATTENDING PHYSICIAN Internal Medicine; FAMILY PHYSICIAN Family Medicine
DX: I10 Essential (primary) hypertension (principal); I50.32 Chronic diastolic (congestive) heart failure; I25.10 Atherosclerotic heart disease of native coronary artery without angina pectoris
CPT/HCPCS: 36415; 80048

== ENCOUNTER → 2024-12-01 11:04 | Outpatient (REF) | payer MEDICARE, SELFPAY ==
[2024-12-01 16:17] LABS: Blood Urea Nitrogen 30 mg/dl (9-20); Calcium 9.2 mg/dl (8.4-10.2); Carbon Dioxide 28 mmol/L (22-30); Chloride 104 mmol/L (98-107); Glucose 93 mg/dl (70-99); Phosphorus 3.4 mg/dl (2.5-4.5); Potassium 4.2 mmol/L (3.5-5.1); Sodium 141 mmol/L (135-145); Uric Acid 9.8 mg/dl (3.5-8.5)
[2024-12-01 16:19] LABS: Protein/creatinine Ratio 0.4; Urine Protein 16 mg/dl
[2024-12-02 12:31] LABS: Intact PTH 90.3 pg/ml (13.6-85.8)
== END ==
LOC: HWRAD 11:04
PROVIDERS: ATTENDING PHYSICIAN Specialist; FAMILY PHYSICIAN Family Medicine
DX: N17.9 Acute kidney failure, unspecified (principal); I10 Essential (primary) hypertension; N20.0 Calculus of kidney
CPT/HCPCS: 36415; 76770; 80048; 82570; 83970; 84100; 84155; 84156; 84165; 84550

== ENCOUNTER → 2024-12-24 10:42 | Outpatient (REF) | payer MEDICARE, SELFPAY ==
[2024-12-24 11:10] LABS: % Basophils 0.8 % (0-2); % Eosinophils 5.7 % (0-6); % Immature Granulocytes 0.2 % (0-0.5); % Lymphocytes 27.3 % (20.5-51.1); % Monocytes 12.5 % (1.7-9.3); % Neutrophils 53.5 % (42.2-75.2); Absolute Basophils 0.1 10^3/uL (0-0.2); Absolute Eosinophils 0.3 10^3/uL (0-0.7); Absolute Lymphocytes 1.6 10^3/uL (1.2-3.4); Absolute Monocytes 0.7 10^3/uL (0.1-0.6); Absolute Neutrophils 3.2 10^3/uL (1.4-6.5); Hemoglobin 12.8 g/dL (13.0-18.0); Mean Corp Hgb Conc. 32.8 g/dL (33.0-37.0); Mean Corpuscular Hgb 31.2 pg (27.0-31.0); Mean Corpuscular Volume 95.1 fL (80.0-94.0); Mean Platelet Volume 10.3 fL (7.4-10.4); Nucleated Red Blood Cells % 0 % (-); Platelet Count 181 10^3/uL (130-400); Red Cell Dist. Width 13.2 % (11.5-14.5); White Blood Cell Count 5.9 10^3/uL (4.8-10.8)
== END ==
LOC: SDSPAT 10:42
PROVIDERS: ATTENDING PHYSICIAN Internal Medicine Cardiovascular Disease; FAMILY PHYSICIAN Family Medicine; OTHER PHYSICIAN Internal Medicine
DX: I48.19 Other persistent atrial fibrillation (principal)
CPT/HCPCS: 36415; 85025; 86850; 86900; 86901

== ENCOUNTER 2024-12-29 10:21 | Day surgery (SDC) | payer MEDICARE, SELFPAY ==
[2024-12-24 10:54] VITALS: BMI 23.1
[2024-12-29] VITALS (10 sets, daily range): BP systolic 102–142; BP diastolic 51–69
[2024-12-29 14:52] LABS: ACT-LR - POC > 397 Seconds (116-155)
[2024-12-29 14:52] LABS: ACT-LR - POC > 397 Seconds (116-155)
--- NOTE | 2024-12-29 15:34 | ITS.CL.ABL ---
Gynaecological Oncologist - Ablation
Ablation
Procedure Report:
AFIB ablation:
Mr. Robles is a very pleasant 84 yr old gentleman with h/o CAD (CABG, 2012), MR, HTN, HLD, and CLINTON and persistent atrial fibrillation and atrial flutters presented today to the EP lab for atrial fibrillation / flutter ablation.
Date of Procedure:
12/29/2024
Indications:
Recurrent atrial fibrillation / atrial flutter
Pre-Operative Diagnosis:
Persistent atrial fibrillation /Atrial flutter
Post-Operative Diagnosis:
Persistent atrial fibrillation /Atrial flutter
Procedure Performed:
Atrial fibrillation ablation with pulmonary vein isolation
Left atrial flutter � roof dependent ablation
Posterior wall isolation
Typical atrial flutter with Cavo tricuspid isthmus (CTI) ablation
Performing Physician:
López Coronado MD
Assistants:
EP staff
Anesthesia:
See anesthesia records
Detailed Description of the Procedure:
Written informed consent was obtained from the patient after a full explanation of the risks and benefits of the procedure including the risks of sedation and anesthesia.
The patient was brought to the electrophysiology laboratory in stable condition in fasting state. Continuous electrocardiographic and hemodynamic monitoring was initiated.
The initial rhythm was atrial flutter.
Time out:
The procedure site was meticulously prepared with surgical scrub and allowed to dry with no pooling. Sterile draping was applied to cover the procedure site. The image intensifier was draped with sterile bag and positioned over the patient.
Prior to the start of the procedure a surgical pause was performed with in agreement from anesthesia, EP staff with double identifier and explanation of the procedure, plan and site of the procedure stated with allergies and medications and
pertinent labs reviewed.
After infusion of local anesthetic, vascular access was obtained under ultrasound guidance and sheaths were placed over guide wire as detailed below. The images were stored in patient chart.
Sheaths:
��������������� Agilis sheath in right femoral vein upgraded from 8Fr in right femoral vein
��������������� 9Fr in right femoral vein
��������������� 7Fr in right femoral vein
���������������
Catheters:
��������������� The Affera Sphere 9 catheter -bidirectional D/F� - at locations of HRA, RV, LA and LV.
��������������� ICE catheter - at locations of RA, SVC, and RV.
��������������� Bard decapolar catheter � In RA and CS
���������������
A 7000 units of heparin was given
Intracardiac ECHO:
An 8-Maldivian AcuNav intracardiac ECHO (ICE) probe was advanced through the 9-Maldivian sheath in the right femoral vein into the right atrium under fluoroscopic and ICE ultrasound image guidance and a baseline ECHO study was performed. The left atrial
size was severely dilated. There was trace tricuspid regurgitation. There was mild mitral regurgitation. There was mildly reduced left ventricular systolic function. There is no pericardial effusion. All the four veins were identified and has good
flow identified. No definite clot seen.�
During the procedure, ICE was used for monitoring of complications, guidance of trans-septal puncture, monitor the catheter position and tracking ablation lesions. No change in the pericardial space noted throughout the procedure.
Trans-septal Puncture:
Heparin was initiated and infused to maintain appropriate ACT. A J-tipped guidewire was advanced through into the superior vena cava under fluoroscopic and ICE guidance. The Agilis sheath was advanced into the superior vena cava over a guidewire. A
BRK needle with stylet was advanced inside the Agilis sheath. The apparatus was withdrawn until it was in contact with the fossa ovalis. The position was adjusted based on fluoroscopy and ultrasound images from ICE. Under fluoroscopic, hemodynamic
and ICE ultrasound guidance, left atrium was cannulated by advancing the needle. Once atrial septum was cannulated, the needle was pulled back and the guide wire was advanced through the needle into the left atrium. The guide wire was advanced into
the left superior pulmonary vein. Both the sheath and the dilator was advanced into the left atrium. The dilator with the needle was withdrawn. Blood was aspirated from the Agilis sheath and arterial blood confirmed. The sheath was flushed. Saline
injection noted into the left atrium on ICE. The waveform of the LA pressure was recorded. The mapping catheter was advanced in the Agilis sheath into the left pulmonary vein.
3D Electroanatomic Mapping:
Using the Sphere 9 Affera catheter advanced through Agilis sheath into the left atrium, an electroanatomic map (EAM) of the left atrium was created using [employer] mapping system with Selleroutlet software. The map was used for localization of catheter
position and tacking of ablation lesions.
The EAM of the left atrium showed a total of 4 PVs with two left and two right sided pulmonary veins. There was extensive scarring noted in the LA. The posterior wall had scattered signals. The LA was dilated. �
Following the EAM, preparation were made for ablation.
Ablation:
Ablation # 1: Atrial fibrillation ablation - Pulmonary vein Isolation:
Pulsed field ablation was performed using an open irrigation, bidirectional, contact sensing, dual energy ablation catheter (Affera sphere -9) by completing the circumferential lesions around the left and right pulmonary veins achieving pulmonary
vein isolation.
Ablation # 2: Roof line Formation:
There was a clear channel of electrical activity left in the posterior wall with multiple CFAE and AF areas on the roof and ablation in that area increased the risk of atrial flutter and decision was made to create a roof line to block a slow
conduction. A set of pulsed field ablations were placed on the roof line connecting the left superior pulmonary vein ablation lesions to the right superior pulmonary vein lesions rings.
Cardioversion:
A 200J shock was delivered via Zoll patched restoring the sinus rhythm.
Patient stayed in sinus for few beats and went into atrial flutter. The AFL was 460 msec and concentric in the CS. The surface EKG was not consistent with typical flutter. Decision was made to map the flutter.
The flutter was involving the posterior wall. The flutter bump terminated into sinus rhythm with ablation catheter in the posterior wall.
Ablation # 3: Posterior wall isolation with the Box lesions set Formation:
There was a significant fractionation seen in the posterior wall and LA AF foci along with CFAE made it clear as the posterior wall is critical in maintaining the atrial fibrillation and the decision was made to isolate the posterior wall by
creating a �Box� lesions.
A set of Pulsed field ablations were placed on the floor line connecting the left inferior pulmonary vein ablation lesions to the right inferior pulmonary vein lesions rings.
Once sinus rhythm achieved, the sphere 9 in the posterior wall showed entrance block and the pacing from the posterior wall showed no exit from the box lesions confirming the exit block.
Confirmation of the PVI and bidirectional block:
Following achievement of entrance block at the pulmonary veins, pacing from the Sphere 9 affera catheter in each of the four veins at 10 milliamps for 4 milliseconds showed entrance and exit block.
The LA was mapped with [employer] mapping system with Prism-1 software in sinus rhythm confirming the line of block at the ablation lesions lines.
Patient had conduction delayed with Wenckebach / second degree AV conduction. There was no significant pause noted.
All PVI were rechecked at the end of the case. Entrance and exit block were demonstrated.
Then the attention was diverted to typical atrial flutter.
Electroanatomic mapping of the right atrium:
Using the Sphere 9 Affera catheter advanced through Agilis sheath into the right atrium, an electroanatomic map (EAM) of the right atrium was created using the [employer] mapping system with Selleroutlet software mapping system.
There was borderline long HV conduction noted at baseline at 55 ms.
Ablation # 4: Typical Atrial Flutter Ablation:
The concentric flutter earlier could be related to CTI flutter ablation.
The CTI ablation was done using radiofrequency with Affera sphere -9 ablation, open irrigation, force-sensing bidirectional ablation catheter in the cavotricuspid isthmus from the tricuspid annulus to the IVC ridge. �
Once the ablation catheter reach near the IVC, the ablation energy was changed to pulsefield.
��������������� -Bidirectional block was confirmed across the CTI line with differential pacing.
��������������� -Double potentials were spaced greater than 98 msec apart.
��������������� -The conduction time across the CTI line from proximal CS pacing was 188 msec.
��������������� -EAM of the right atrium was obtained with coronary sinus pacing and showed a line of block at the CTI.
��������������� -The time interval just lateral to the ablation lesions was 188 msec and the lateral wall was 112 msec
��������������� - All these maneuvers confirmed the block at the CTI line.
- Post ablation HV interval was unchanged at 54msec
Procedure End
ICE study was done again that showed no epicardial accumulation. No complications noted.
Following the completion of the EP study, catheters were removed. Protamine 40 mg was given at the end of the procedure and ACT was checked repeatedly. The sheaths were removed and hemostasis achieved with VASCADE and manual compression.
Left atrial Pressure:
Post-Procedure: Mean LA pressure was 21mmHg
Post-Procedure: Mean RA pressure was 12mmHg
Fluoro Time:
0.8 min
Estimated Blood loss:
<10 cc
Specimens Removed:
None.
Implants / Devices:
None
Urine output:
None
Packs / Drains/ Tubes:
None
Instrument / Sponge Count Correct:
Yes
Complications of the Procedure:
None
Condition of Patient at Time of Transfer:
Hemodynamically stable with no neurological or vascular compromise.
Summary:
Successful atrial fibrillation ablation with pulmonary vein isolation, roof flutter ablation, posterior wall isolation, Typical CTI flutter ablation,
--- NOTE | 2024-12-29 17:01 | W.PN.UPDATE ---
Update Note
Progress Note Update
84 yo WM s/p PVI/CTI flutter ablation (same day). He denies cp, sob, luis angel diet, voiding, R fem site vascade c/d/i no HT, EKG initially with Mobitz type 1 HB, repeat EKG in 1 hr SR 1deg AVB. He will resume eliquis tonight. Activity restrictions
reviewed. He will f/u PERFORMANCE TESTER in 2 weeks. He is for d/c home after 6p if groin remains stable and HR remains SR.
[2024-12-29] MEDS: LASIX 20 MG IV (17:22)
== END 2024-12-29 18:00 | disposition home or self-care (01) ==
LOC: CATH 10:21
PROVIDERS: ATTENDING PHYSICIAN Internal Medicine Cardiovascular Disease; FAMILY PHYSICIAN Family Medicine
DX: I48.19 Other persistent atrial fibrillation (principal); Z95.1 Presence of aortocoronary bypass graft; I25.10 Atherosclerotic heart disease of native coronary artery without angina pectoris; I10 Essential (primary) hypertension; E78.5 Hyperlipidemia, unspecified; G47.33 Obstructive sleep apnea (adult) (pediatric); I48.3 Typical atrial flutter
CPT/HCPCS: C1769; C1894; C1730; C1733; C1766; C1892; C1759; 85347; 93005; 93655; 93656; 93657; C1760

== ENCOUNTER → 2025-07-05 07:47 | Outpatient (REF) | payer MEDICARE, SELFPAY ==
[2025-07-05 08:50] LABS: Hematocrit 40.7 % (39.0-52.0); Hemoglobin 13.0 g/dL (13.0-18.0); Mean Corp Hgb Conc. 31.9 g/dL (33.0-37.0); Mean Corpuscular Volume 98.3 fL (80.0-94.0); Nucleated Red Blood Cells % 0 % (-); Platelet Count 218 10^3/uL (130-400); Red Cell Dist. Width 12.7 % (11.5-14.5)
[2025-07-05 09:31] LABS: ALT (SGPT) 17 U/L (0-50); AST (SGOT) 25 U/L (17-59); Albumin 4.3 g/dl (3.5-5.0); Alkaline Phosphatase 64 U/L (38-126); Blood Urea Nitrogen 29 mg/dl (9-20); Calcium 8.7 mg/dl (8.4-10.2); Carbon Dioxide 27 mmol/L (22-30); Chloride 108 mmol/L (98-107); Glucose 90 mg/dl (70-99); HDL Cholesterol 62 mg/dl; LDL Cholesterol, Calculated 78 mg/dl; Potassium 4.5 mmol/L (3.5-5.1); Sodium 140 mmol/L (135-145); Total Protein 7.3 g/dl (6.3-8.2); Very Low Density Lipoprotein 10 mg/dl (0-30); eGFR 58.53
[2025-07-05 09:35] LABS: Vitamin D, 25-OH*** 36.2 ng/mL (30-80)
== END ==
LOC: REG 07:47
PROVIDERS: ATTENDING PHYSICIAN Family Medicine; FAMILY PHYSICIAN Internal Medicine
DX: E78.5 Hyperlipidemia, unspecified (principal); N18.31 Chronic kidney disease, stage 3a; Z13.1 Encounter for screening for diabetes mellitus; R79.89 Other specified abnormal findings of blood chemistry; E55.9 Vitamin D deficiency, unspecified; R53.83 Other fatigue; Z13.29 Encounter for screening for other suspected endocrine disorder
CPT/HCPCS: 36415; 80053; 80061; 82306; 84443; 85025